=== PATIENT | male | born 1970 | race Hispanic/Latino ===

== ENCOUNTER 2024-11-28 11:52 | Emergency (ER) | payer OTHER ==
[2024-11-28 12:36] LABS: #Basophils Less than 0.03 10x3/uL (0.0-0.2); #Eosinophils 0.08 10x3/uL (0.0-0.5); #Monocytes 0.28 10x3/uL (0.0-1.1); #Neutrophils 1.37 10x3/uL (1.5-8.4); %Basophils 0.4 % (0.0-2.0); %Eosinophils 3.0 % (0.0-6.0); %Lymphocytes 35.6 % (18.0-47.0); %Monocytes 10.4 % (0.0-10.0); %Neutrophils 50.6 % (40.0-75.0); Hematocrit 33.3 % (38.8-50.0); Hemoglobin 11.7 g/dL (13.5-17.5); Mean Corpuscular Hemoglobin 33.3 pg (27.0-33.0); Mean Corpuscular Volume 94.9 fL (81.2-95.1); Platelet Count 87 10x3/uL (150-450); Red Blood Cell (RBC) Count 3.51 10x6/uL (4.32-5.72); White Blood Cell (WBC) Count 2.70 10x3/uL (3.5-10.5)
[2024-11-28 12:48] LABS: ALT (SGPT) 17 U/L (Less than 45); AST (SGOT) 33 U/L (11-34); Albumin 3.5 g/dL (3.1-4.5); Alkaline Phosphatase 69 U/L (40-110); Anion Gap 11 mmol/L (10-20); BUN (Urea Nitrogen) 18 mg/dL (8.4-25.7); Bilirubin, Total 3.3 mg/dL (0.3-1.2); Calc. Creatinine Clearance 0 mL/min (70-130); Calcium 8.5 mg/dL (7.8-10.44); Carbon Dioxide 18 mmol/L (22-29); Chloride 117 mmol/L (98-107); Globulin 3.4 g/dL (2.4-3.5); Glucose 106 mg/dL (70-105); Lipase 22 U/L (8-78); Potassium 3.6 mmol/L (3.5-5.1); Sodium 142 mmol/L (136-145)
[2024-11-28] MEDS ORDERED: Lactulose 20 GM (30 mL) UDCUP ONE (13:27)
== END 2024-11-28 13:51 | disposition home or self-care (01) ==
LOC: CSHERS 11:52 → EEVIPCON 11:52 → CSHERS 13:51
DX: K76.82 Hepatic encephalopathy (principal); Z91.148 Patient's other noncompliance with medication regimen for other reason
CPT/HCPCS: 80053; 82140; 83690; 85025; 99285